=== PATIENT | male | born 1995 | race Caucasian/White ===

== ENCOUNTER → 2022-11-10 14:23 | Outpatient (BNVA) | payer MEDICAID, SELFPAY | PROVIDERS: PCP Pediatrics Adolescent Medicine; Visit Provider Otolaryngology | DX: H61.23 Impacted cerumen, bilateral (principal); J30.9 Allergic rhinitis, unspecified | CPT/HCPCS: 69210; 99203 ==

== ENCOUNTER → 2023-06-02 15:57 | Outpatient (BNVA) | payer MEDICAID, SELFPAY | PROVIDERS: PCP Electrodiagnostic Medicine; Visit Provider Otolaryngology | DX: H61.23 Impacted cerumen, bilateral (principal); H90.0 Conductive hearing loss, bilateral; J30.9 Allergic rhinitis, unspecified | CPT/HCPCS: 69210; 99213 ==

== ENCOUNTER → 2023-08-30 15:56 | Outpatient (BNVA) | payer MEDICAID, SELFPAY | PROVIDERS: PCP Electrodiagnostic Medicine; Visit Provider Otolaryngology | DX: H61.23 Impacted cerumen, bilateral (principal) | CPT/HCPCS: 69210; 99212 ==

== ENCOUNTER → 2024-02-21 14:56 | Outpatient (BNVA) | payer MEDICAID, SELFPAY | PROVIDERS: PCP Electrodiagnostic Medicine; Visit Provider Nurse Practitioner Family | DX: T30.4 Corrosion of unspecified body region, unspecified degree (principal); L70.0 Acne vulgaris; D17.21 Benign lipomatous neoplasm of skin and subcutaneous tissue of right arm; L81.4 Other melanin hyperpigmentation | CPT/HCPCS: 99214 ==

== ENCOUNTER → 2024-03-27 15:13 | Outpatient (BNVA) | payer MEDICAID, SELFPAY | PROVIDERS: PCP Electrodiagnostic Medicine; Visit Provider Nurse Practitioner Family | DX: L70.0 Acne vulgaris (principal); L81.4 Other melanin hyperpigmentation; L72.0 Epidermal cyst; T30.4 Corrosion of unspecified body region, unspecified degree; X58.XXXA Exposure to other specified factors, initial encounter | CPT/HCPCS: 99214 ==

== ENCOUNTER → 2024-05-09 14:45 | Outpatient (BNVA) | payer MEDICAID, SELFPAY | PROVIDERS: PCP Electrodiagnostic Medicine; Visit Provider Dermatology | DX: D48.5 Neoplasm of uncertain behavior of skin (principal); R23.8 Other skin changes; R20.8 Other disturbances of skin sensation; L53.8 Other specified erythematous conditions | CPT/HCPCS: 11422; 12042 ==